=== PATIENT | female | born 1995 | race Caucasian/White ===

== ENCOUNTER 2016-08-25 20:55 | Emergency (ER) | payer MEDICAID ==
[~2016-08-25] VITALS: Ht 152.4 cm; Wt 38.4 kg
[2016-08-25 20:57] VITALS: BP 112/78
[2016-08-25] MEDS ORDERED: LIDOCAINE 1%, 20ML SQ ONE (22:00)
[2016-08-25] MEDS ORDERED: DIPH,PERTUSS(ACELL),TET VAC/PF 0.5 ML IM-VACC ONE ×2 (22:00→22:36)
[2016-08-25] MEDS ORDERED: LIDOCAINE 1%, 20ML ONE (22:14)
== END 2016-08-25 22:51 | disposition home or self-care (01) ==
LOC: ED 22:46
DX: S91.119A Laceration without foreign body of unspecified toe without damage to nail, initial encounter (principal); M79.641 Pain in right hand; F11.10 Opioid abuse, uncomplicated; W26.0XXA Contact with knife, initial encounter; Y93.89 Activity, other specified; Y92.000 Kitchen of unspecified non-institutional (private) residence as the place of occurrence of the external cause; Y99.8 Other external cause status
CPT/HCPCS: 12002; 90471; 90715; 96372; 99284; J3490

== ENCOUNTER 2017-01-29 12:17 | Emergency (ER) | payer MEDICAID ==
[~2017-01-29] VITALS: Ht 154.9 cm; Wt 38.4 kg
[2017-01-29 12:27] VITALS: BP 109/75
[2017-01-29] MEDS ORDERED: KETOROLAC 30 MG/1 ML IM ONE (13:00)
[2017-01-29] MEDS ORDERED: KETOROLAC 30 MG/1 ML ONE (13:02)
== END 2017-01-29 13:50 | disposition home or self-care (01) ==
LOC: ED 13:45
DX: R07.81 Pleurodynia (principal); F32.9 Major depressive disorder, single episode, unspecified; F17.200 Nicotine dependence, unspecified, uncomplicated
CPT/HCPCS: 71101; 93005; 96372; 99284; J1885

== ENCOUNTER 2017-08-05 19:01 | Emergency (ER) | payer MEDICAID ==
[~2017-08-05] VITALS: Ht 152.4 cm; Wt 38.3 kg
[2017-08-05 19:03] VITALS: BP 98/65
[2017-08-05] MEDS ORDERED: LIDOCAINE-MPF 1%, 5ML INFIL ONE (19:30)
== END 2017-08-05 20:53 | disposition home or self-care (01) ==
LOC: ED 20:47
DX: L03.317 Cellulitis of buttock (principal); L02.31 Cutaneous abscess of buttock; F10.20 Alcohol dependence, uncomplicated
CPT/HCPCS: 99283

== ENCOUNTER 2018-12-22 03:23 | Emergency (ER) | payer MEDICAID ==
[~2018-12-22] VITALS: Ht 152.4 cm; Wt 37.9 kg
[2018-12-22 03:28] VITALS: BP 105/73
== END 2018-12-22 04:23 | disposition home or self-care (01) ==
LOC: ED 04:10
DX: H05.013 Cellulitis of bilateral orbits (principal); F17.200 Nicotine dependence, unspecified, uncomplicated
CPT/HCPCS: 99283

== ENCOUNTER 2019-09-26 14:31 | Emergency (ER) | payer MEDICAID ==
[~2019-09-26] VITALS: Ht 152.4 cm; Wt 38.6 kg
[~2019-09-26 14:31] MED LIST: ASCO500T9 PO; CEFT600V IV; FERR-51 PO; HYDR-826 PO; METH5TAB2 PO
--- NOTE | 2019-09-26 14:47 | NUR ---
PT STATES LOW BACK PAIN UNKNOWN ETIOLOGY FOUR DAYS. STATES SHE HAS ANXIETY ESPECIALLY AROUND OTHER PEOPLE. PT STATES THAT AND THE BACK PAIN IS WHY SHE BELIEVES SHE HAS A FAST HR
--- NOTE | 2019-09-26 15:01 | NUR ---
REPORT RECEIVED FROM ESTHER CHAMBERS. PT RESTING ON [employer] W/ CALL LIGHT IN REACH. AWAITING ED EVAL.
--- NOTE | 2019-09-26 15:11 | NUR ---
PT REPORTS SHE HAS HAD 2 BLOODY STOOLS IN THE PAST 2 WEEKS. PT IS TACHYCARDIC, OTHER VS WDL.
[2019-09-26] MEDS ORDERED: ONDANSETRON 2MG/ML, 2ML ONE (15:18)
[2019-09-26] MEDS ORDERED: KETOROLAC 30 MG/1 ML ONE (15:18)
[2019-09-26] MEDS ORDERED: MORPHINE SULFATE 4 MG/ML, 1ML ONE ×2 (15:19→18:15)
--- NOTE | 2019-09-26 15:20 | NUR ---
PT AMBULATED TO THE BR W/ A STEADY GAIT. URINE COLLECTED AND SENT TO LAB.
[2019-09-26] MEDS ORDERED: SODIUM CHLORIDE FLUSH 10ML SYR IVF ONE (15:30)
[2019-09-26] MEDS ORDERED: ONDANSETRON 2MG/ML, 2ML IVPush ONE (15:30)
[2019-09-26] MEDS ORDERED: SODIUM CHLORIDE 0.9% 1,000ML IVBOLUS ONE (15:30)
[2019-09-26] MEDS ORDERED: KETOROLAC 30 MG/1 ML IV ONE (15:30)
[2019-09-26] MEDS: MORPHINE SULFATE 4 MG/ML, 1ML IVPush PRN ×2 (15:39→18:16)
--- NOTE | 2019-09-26 15:47 | NUR ---
PIV STARTED, LABS DRAWN. PT MEDICATED PER EMAR. PT RESTING ON [employer] W/ CALL LIGHT IN REACH. SIDE RAILS UPX2. DENIES FURTHER NEEDS AT THIS TIME.
--- NOTE | 2019-09-26 15:51 | NUR ---
PT TO RAD.
[2019-09-26 15:54] LABS: BASOPHILS # (AUTO) 0.09 x10^3/uL (0-0.1); BASOPHILS % (AUTO) 1 % (0-1); EOSINOPHILS % (AUTO) 2 % (1-7); LYMPHOCYTES # (AUTO) 2.31 x10^3/uL (1-3.4); LYMPHOCYTES % (AUTO) 19 % (22-44); MD NO; MEAN CORPUSCULAR HEMOGLOBIN 26.7 pg (27.0-34.8); MEAN CORPUSCULAR VOLUME 83.5 fL (80-100); MEAN PLATELET VOLUME 7.1 fL (7.4-10.4); MONOCYTES # (AUTO) 0.76 x10^3/uL (0.2-0.8); MONOCYTES % (AUTO) 6 % (2-9); NEUTROPHILS # (AUTO) 8.78 x10^3/uL (1.8-6.8); NEUTROPHILS % (AUTO) 72 % (42-75); PLATELET COUNT 412 x10^3/uL (130-400); RED BLOOD COUNT 4.72 x10^6/uL (3.82-5.3); RED CELL DISTRIBUTION WIDTH 15.7 % (9.6-15.2)
[2019-09-26 16:06] LABS: ALANINE AMINOTRANSFERASE 18 U/L (12-78); ANION GAP 7 mmol/L (5-15); CALCIUM 8.5 mg/dL (8.5-10.1); CHLORIDE 100 mmol/L (98-107)
[2019-09-26 16:10] LABS: ALKALINE PHOSPHATASE 83 U/L (45-117); BILIRUBIN,TOTAL 0.3 mg/dL (0.2-1.0); TOTAL PROTEIN 7.9 g/dL (6.4-8.2)
--- NOTE | 2019-09-26 16:10 | NUR ---
PT BACK FROM RAD. HR IMPROVED SINCE MEDS AND IVF STARTED. PT RESTING ON [employer] W/ CALL LIGHT IN REACH. AWAITING RESULTS.
[2019-09-26 16:12] LABS: AMPHETAMINE SCREEN, URINE Positive (Negative); BARBITURATE SCREEN, URINE Negative (Negative); BENZODIAZEPINE SCREEN, URINE Negative (Negative); CANNABINOID SCREEN, URINE Positive (Negative); COCAINE SCREEN, URINE Negative (Negative); METHADONE SCREEN, URINE Negative (Negative); OPIATE SCREEN, URINE Positive (Negative)
[2019-09-26 16:17] LABS: MICROSCOPIC AUTO
--- NOTE | 2019-09-26 16:36 | NUR ---
ALL TESTS RESULTED. PT IS UP FOR RECHECK AT THIS TIME.
[2019-09-26] MEDS ORDERED: LORazepam 2 MG/ML, 1ML ONE (16:42)
[2019-09-26] MEDS ORDERED: LORazepam 2 MG/ML, 1ML IVPush ONE (17:00)
--- NOTE | 2019-09-26 18:06 | NUR ---
PT PROVIDED MEAL TRAY.
--- NOTE | 2019-09-26 18:11 | NUR ---
PT AMBULATED TO THE BR W/ A STEADY GAIT.
--- NOTE | 2019-09-26 18:54 | NUR ---
BEDSIDE REPORT FROM NOAH CHAMBERS, PT CARE TRANSFERRED AT THIS TIME. PT RESTING IN GURNEY, NAD, RESP WNL, CALL LIGHT ON LAP, FCS no SOB NOTED, P/W/D. WCTM.
--- NOTE | 2019-09-26 19:40 | NUR ---
PT RESTING IN GURNEY, GIVEN PUDDING AND APPLE SAUCE FOR COMFORT, NAD, RESP WNL, HEART RATE ELEVATED, PT DENIES ADDITIONAL NEEDS AT THIS TIME, CALL LIGHT ON LAP, WATCHING TV, P/W/D, MAEx4. WCTM
[2019-09-26 20:08] VITALS: BP 119/78
--- NOTE | 2019-09-26 20:20 | NUR ---
Patient given discharge instructions and they have confirmed that they understand the instructions. Patient ambulatory with steady gait. Pt denies additional NAD, P/W/D, RESP WNL.
== END 2019-09-26 20:21 | disposition home or self-care (01) ==
LOC: ED 16:16
DX: S39.012A Strain of muscle, fascia and tendon of lower back, initial encounter (principal); R00.0 Tachycardia, unspecified; X58.XXXA Exposure to other specified factors, initial encounter; Y93.89 Activity, other specified; Y92.89 Other specified places as the place of occurrence of the external cause; Y99.8 Other external cause status
CPT/HCPCS: 36415; 72110; 80053; 80307; 81001; 83605; 84703; 85025; 87086; 93005; 96374; 96375; 96376; 99285; J1885; J2060; J2270; J2405; J7030; 87077; 87186